=== PATIENT | female | born 1975 | race Caucasian/White ===

== ENCOUNTER 2019-11-10 16:40 | Outpatient (CLI) | payer SELFPAY | END 2019-11-10 23:59 | disposition EMS.NT | LOC: EMS 16:40 | PROVIDERS: ATTEND Surgery | DX: Z04.1 Encounter for examination and observation following transport accident (principal) ==

== ENCOUNTER 2020-09-09 14:24 | Emergency (ER) | payer OTHER ==
[2020-09-09 14:32] VITALS: BP 154/92
[2020-09-09] MEDS ORDERED: KETOROLAC 60 MG/2 ML VIAL IM STA (14:42)
--- NOTE | 2020-09-09 15:31 | XRAY Report ---
PROCEDURE: Hip w/Pelvis 2-3V RT INDICATIONS: pulled hamstring TECHNIQUE: AP pelvis with lateral view(s) of the bilateral hip(s). COMPARISON: None. FINDINGS: Bones: No fractures or dislocations. Pelvic ring appears intact. No suspicious bony lesions. No a vulsion fracture fragments noted. Soft tissues: The visualized bowel gas pattern is normal. No suspicious soft tissue calcifications. IMPRESSION: Right hip and pelvis without acute fracture or dislocation. If there is persistent clinical concern for a radiographically occult fracture, recommend immobilizat ion and repeat imaging in 10 to 14 days. Reviewed by: Abdoul Savage MD on 09/09/2020 3:29 PM PST Approved by: Abdoul Savage MD on 09/09/2020 3:29 PM PST Station ID: [id number]
--- NOTE | 2020-09-09 15:40 | ED Physician Documentation ---
PD HPI LOWER EXT INJURY - Stated complaint Stated Complaint: RT LEG PX - Chief complaint Chief Complaint: Trauma Ext - History obtained from History obtained from: Patient - History of Present Illness PD HPI LOW EXT INJURY LOCATION: Right, Thigh Type of injury: Twist Where injury occurred: Work Timing - onset: Today Timing - duration: Minutes Timing - details: Abrupt onset, Still present Improved by: Rest, Immobilization Worsened by: Moving, Palpating Associated symptoms: No: Weakness, Numbness Contributing factors: No: Anticoagulated Similar symptoms before: Has not had sx before Recently seen: Not recently seen - Additional information Additional information: 45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 Review of Systems Constitutional: reports: Fatigue. denies: Fever, Myalgias Throat: denies: Sore throat Cardiac: denies: Chest pain / pressure Respiratory: denies: Dyspnea, Cough GI: denies: Vomiting PD PAST MEDICAL HISTORY - Past Medical History Cardiovascular: Hypertension Respiratory: None Neuro: None Endocrine/Autoimmune: None GI: None FURNITURE RESTORER: None : None HEENT: None Psych: None Musculoskeletal: None Derm: None - Past Surgical History Past Surgical History: No - Present Medications Home Medications: Ambulatory Orders Medication Instructions Recorded Confirmed Lisinopril [Prinivil] 10 mg PO DAILY 09/09/20 09/09/20 traMADol [Ultram] 50 - 100 mg PO Q6H PRN #20 tablet 09/09/20 - Allergies Allergies/Adverse Reactions: Allergies Allergy/AdvReac Type Severity Reaction Status Date / Time No Known Drug Allergies Allergy Verified 09/09/20 14:28 - Social History Does the pt smoke?: No Smoking Status: Never smoker Does the pt drink ETOH?: Yes Does the pt have substance abuse?: No - Immunizations Immunizations are current?: Yes PD ED PE NORMAL - Vitals Vital signs reviewed: Yes (tachy and hypertensive ) - General General: Alert and oriented X 3, Well developed/nourished, Other (appears to be in pain acutely. 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, No motor deficit, No sensory deficit, Normal speech Eye Opening: Spontaneous Motor: Obeys Commands Verbal: Oriented GCS Score: 15 - Psych Psych: Normal mood, Normal affect Results - Vitals Vitals: Vital Signs - 24 hr 09/09/20 14:29 Temperature 37.1 C Heart Rate 120 H Respiratory 24 Rate Blood Pressure 154/92 H O2 Saturation 97 Oxygen O2 Source Room air - Rads (name of study) r hip Radiology: Prelim report reviewed (Impression: Right hip and pelvis without acute fracture or dislocation.), EMP read indepedently, See rad report PD MEDICAL DECISION MAKING - ED course Complexity details: reviewed results, re-evaluated patient, considered differential, d/w patient ED course: 45-year-old female with a work-related injury with a pole of her hamstrings mu scle is in severe pain. An ice pack is applied she is given 60 mg of Toradol IM and sent home from work. She did ambulate around the emergency department with crutches finishing up paperwork and insisting on continuing to work. Departure - Departure Disposition: 01 Home, Self Care Clinical Impression: Hamstring muscle strain Qualifiers: Encounter type: initial encounter Laterality: right Qualified Code(s): S76.311A - Strain of muscle, fascia and tendon of the posterior muscle group at thigh level, right thigh, initial encounter Condition: Stable Instructions: Hamstring Stretch, ED Strain Muscle Ext Follow-Up: [facility] [Provider Group] Prescriptions: traMADol [Ultram] 50 - 100 mg PO Q6H PRN #20 tablet PRN Reason: Pain Discharge Date/Time: 09/09/20 16:00
== END 2020-09-09 16:00 | disposition home or self-care (01) ==
LOC: ED 14:24
DX: S76.312A Strain of muscle, fascia and tendon of the posterior muscle group at thigh level, left thigh, initial encounter (principal); Y93.F2 Activity, caregiving, lifting; Y92.239 Unspecified place in hospital as the place of occurrence of the external cause; Y99.0 Civilian activity done for income or pay; I10 Essential (primary) hypertension
CPT/HCPCS: 1040M; 73502; 96372; 99283; 99284

== ENCOUNTER 2021-11-13 17:38 | Emergency (ER) | payer OTHER ==
[2021-11-13] MEDS ORDERED: oxyCODONE 5 MG TABLET PO STA (17:40)
--- NOTE | 2021-11-13 17:45 | ED Physician Documentation ---
PD HPI UPPER EXT INJURY - Stated complaint Stated Complaint: L WRIST INJ - History obtained from History obtained from: Patient - History of Present Illness Location: Left Timing - duration: Hours (1) Pain level max: 9 Pain level now: 9 Improved by: Rest, Ice, Immobilization Worsened by: Moving, Palpating Associated symptoms: No: Weakness, Numbness, Tingling Contributing factors: No: Anticoagulated - Additonal information Additional information: 46-year-old female who was on a ladder today when she fell off, landing on the left wrist. She states there was deformity noted. She states that she pulled the wrist back straight. Now complains of increasing pain and swelling. No numbness or tingling. No other injuries. Worse with movement, better with rest. Patient is right-handed. Review of Systems Constitutional: denies: Fever, Chills Skin: denies: Rash Musculoskeletal: denies: Neck pain, Back pain Neurologic: denies: Headache PD PAST MEDICAL HISTORY - Past Medical History Past Medical History: Yes Cardiovascular: Hypertension Respiratory: None Neuro: None Endocrine/Autoimmune: None GI: None COMMUNICATIONS COORDINATOR: None : None HEENT: None Psych: None Musculoskeletal: None Derm: None - Past Surgical History Past Surgical History: No - Present Medications Home Medications: Ambulatory Orders Medication Instructions Recorded Confirmed lisinopriL [Prinivil] 10 mg PO DAILY 09/09/20 09/09/20 traMADol [Ultram] 50 - 100 mg PO Q6H PRN #20 tablet 09/09/20 Ondansetron Odt [Zofran] 4 mg TL Q6H PRN #20 tablet 11/13/21 Oxycodone HCl/Acetaminophen 1 - 2 each PO Q6H PRN #20 tablet 11/13/21 [Percocet 5-325 mg Tablet] - Allergies Allergies/Adverse Reactions: Allergies Allergy/AdvReac Type Severity Reaction Status Date / Time No Known Drug Allergies Allergy Verified 11/13/21 17:46 - Social History Does the pt smoke?: No Smoking Status: Never smoker Does the pt drink ETOH?: Yes Does the pt have substance abuse?: No - Immunizations Immunizations are current?: Yes PD ED PE NORMAL - Vitals Vital signs reviewed: Yes - General General: Alert and oriented X 3, No acute distress, Well developed/nourished - HEENT HEENT: Moist mucous membranes - Respiratory Respiratory: No respiratory distress - Derm Derm: Warm and dry - Extremities Extremities: Other (Tender to palpation over the left wrist. Swelling noted. Neurovascularly intact. No snuffbox tenderness.) - Neuro Neuro: Alert and oriented X 3 - Psych Psych: Normal mood, Normal affect Results - Vitals Vitals: Vital Signs - 24 hr 11/13/21 17:39 Temperature 36.7 C Heart Rate 88 Respiratory 16 Rate Blood Pressure 139/80 H O2 Saturation 100 Oxygen O2 Source Room air - Rads (name of study) L Wrist x-ray Radiology: Final report received, EMP read contemporaneously, See rad report (Distal radius fracture comminuted, extends to the articular surface. Ulnar styloid fracture) L wrist CT Radiology: Final report received, EMP read contemporaneously, See rad report Procedures - Splint (location) L wrist Splint applied by: Physician, Tech Type of splint: Fiberglass, Short arm, Volar cock up Other: Patient tolerated well, No complications, Neurovascular intact, Sling provided PD MEDICAL DECISION MAKING - ED course Complexity details: reviewed results, re-evaluated patient, considered differential, d/w patient ED course: 46-year-old female with a left distal radius fracture and ulnar styloid fracture. The distal radius fracture is comminuted. Extends to the articular surface. CT performed for hand surgery in case surgery is needed. Neurovascular intact. Pain well controlled. I am prescribing a short course of short-acting opioid pain medication for this patient. 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 I have discussed that the opioids are for short term therapy only, and will not be refilled from the ED. patient counseled regarding signs and symptoms for which I believe and urgent re-evaluation would be necessary. Patient with good understanding of and agreement to plan and is comfortable going home at this time This document was made in part using voice recognition software. While efforts are made to proofread this document, sound alike and grammatical errors may occur. FINDINGS: BONES: Comminuted fracture of the distal radius, which extends to articular surface. Mildly displaced fracture of the ulnar styloid. The carpal bones are normally aligned. Cystic lesions are seen in the scaphoid and capitate, which may reflect fibrocystic change or erosions. SOFT TISSUES: Edema about the fracture sites. IMPRESSION: 1.Fractures of the distal radius and ulnar styloid. Departure - Departure Disposition: 01 Home, Self Care Clinical Impression: Distal radius fracture, left Qualifiers: Encounter type: initial encounter Fracture type: closed Fracture morphology: unspecified fracture morphology Qualified Code(s): S52.502A - Unspecified fracture of the lower end of left radius, initial encounter for closed fracture Fracture of ulnar styloid Qualifiers: Encounter type: initial encounter Fracture type: closed Fracture alignment: nondisplaced Laterality: left Qualified Code(s): S52.615A - Nondisplaced fracture of left ulna styloid process, initial encounter for closed fracture Condition: Good Instructions: ED Fx Upper Ext Follow-Up: Susan Kang MD [Primary Care Provider] - [facility] [Provider Group] Prescriptions: Oxycodone HCl/Acetaminophen [Percocet 5-325 mg Tablet] 1 - 2 each PO Q6H PRN #20 tablet PRN Reason: pain Ondansetron Odt [Zofran] 4 mg TL Q6H PRN #20 tablet PRN Reason: Nausea / Vomiting Comments: Please follow-up with orthopedics in [place] for further care. The fractures do extend to the articular surface. The use may require surgery, depending on the opinion of the hand surgeon. Please return if you worsen. Your prescriptions were sent to [facility] in [place]. I am prescribing a short course of narcotic pain medication for you. These are potentially dangerous and addictive medications that should be used carefully. These medications may constipate you. Take an heth-gwi-bvorlct stool softener (docusate) twice daily with plenty of water while taking these medications. If you go 24 hours without a bowel movement, take wkoh-pfg-gpyhzqw miralax, per package instructions. Do not drink or drive while taking these medications. If you received narcotic or sedating medications while in the emergency department, do not drive for 24 hours. Store this medication in a safe, secure place and out of reach of children. It is a violation of federal law to give or sell this medication to another person or to use in a manner other than prescribed. The ED will not refill narcotic prescriptions, including prescriptions lost or stolen. To dispose of unwanted medications: 1. [facility] at [address] [facility] in [place] has a medication drop box. They accept prescription medications (in pill form) Tuesday through Tuesday 9:00 a.m. to 5:00 p.m. 2. The [facility] accepts prescription medications (in pill form only) for disposal year round. Call for more inf ormation. 3. Contact the [facility] for the next [facility] sponsored prescription drug collection event. , [phone], or [phone]; FINDINGS: BONES: Comminuted fracture of the distal radius, which extends to articular surface. Mildly displaced fracture of the ulnar styloid. The carpal bones are normally aligned. Cystic lesions are seen in the scaphoid and capitate, which may reflect fibrocystic change or erosions. SOFT TISSUES: Edema about the fracture sites. IMPRESSION: 1.Fractures of the distal radius and ulnar styloid. Discharge Date/Time: 11/13/21 19:30
[2021-11-13 17:46] VITALS: BP 139/80
--- NOTE | 2021-11-13 18:17 | XRAY Report ---
PROCEDURE: Wrist 4 View LT INDICATIONS: L wrist pain TECHNIQUE: 4 views of the wrist were acquired. COMPARISON: None. FINDINGS: BONES: Comminuted fracture of the distal radius, which extends to articular surface. Mildly displaced fracture of the ulnar styloid. The carpal bones are normally aligned. SOFT TISSUES: Edema about the fracture sites. IMPRESSION: 1.Fractures of the distal radius and ulnar styloid. Reviewed by: Jaime Roca MD on 11/13/2021 6:16 PM [facility] Approved by: Jaime Roca MD on 11/13/2021 6:16 PM [facility] Station ID: [id number]
--- NOTE | 2021-11-13 18:53 | CT Report ---
PROCEDURE: UPPER EXTREMITY WO - LT INDICATIONS: distal radius fracture TECHNIQUE: Noncontrast 3 mm axial sections acquired of the left wrist, with coronal and sagittal reformats. COMPARISON: Reference is made to the left wrist radiographs of same day. FINDINGS: Image quality: Excellent. FINDINGS: BONES: Comminuted fracture of the distal radius, which extends to articular surface. Mildly displaced fracture of the ulnar styloid. The carpal bones are normally aligned. Cystic lesions are seen in the scaphoid and capitate, which ma y reflect fibrocystic change or erosions. SOFT TISSUES: Edema about the fracture sites. IMPRESSION: 1.Fractures of the distal radius and ulnar styloid. Reviewed by: Jaime Roca MD on 11/13/2021 6:51 PM PST Approved by: Jaime Roca MD on 11/13/2021 6:51 PM PST Station ID: [id number]
== END 2021-11-13 19:30 | disposition home or self-care (01) ==
LOC: ED 17:38
DX: S52.502A Unspecified fracture of the lower end of left radius, initial encounter for closed fracture (principal); S52.612A Displaced fracture of left ulna styloid process, initial encounter for closed fracture; W11.XXXA Fall on and from ladder, initial encounter; I10 Essential (primary) hypertension
CPT/HCPCS: 29125; 73110; 73200; 99282; 99284; A9270

== ENCOUNTER 2021-11-18 09:30 | Day surgery (SDC) | payer OTHER ==
[~2021-11-18 09:30] MED LIST: ACETAMINOPHEN 325 MG TABLET PO ONE
[2021-11-18] MEDS ORDERED: CEFAZOLIN SODIUM IN 0.9 % NACL 2 GM/50 ML BAG IV ONE (09:31)
[2021-11-18] MEDS ORDERED: CELECOXIB 100 MG CAPSULE PO ONE (09:31)
[2021-11-18] MEDS ORDERED: LACTATED RINGERS 1,000 ML IV ONE (10:10)
--- NOTE | 2021-11-18 10:59 | ANESTHESIA ---
Pre-Anesthesia VS, & Labs - Diagnosis Left distal radius fracture - Procedure ORIF left distal radius fracture Vital Signs: Temp Pulse Resp BP Pulse Ox 36.3 C L 92 20 144/88 H 98 11/18/21 09:37 11/18/21 09:37 11/18/21 09:37 11/18/21 09:37 11/18/21 09:37 Height: 5 ft 3 in Weight (kg): 106.59 kg Body Mass Index: 41.6 BMI Classification: Morbidly Obese - NPO >8 hours - Is Patient ?: No Home Medications and Allergies Home Medications: Ambulatory Orders Ibuprofen 600 mg PO PRN PRN 11/17/21 lisinopriL [Prinivil] 10 mg PO DAILY 09/09/20 Ibuprofen 600 mg PO PRN PRN 11/17/21 Allergies/Adverse Reactions: Allergies Allergy/AdvReac Type Severity Reaction Status Date / Time No Known Drug Allergies Allergy Verified 11/18/21 09:58 Anes History & Medical History - Anesthetic History Family history of Anesthesia Complications: Denies Family history of Malignant Hyperthermia: Denies - Medical History Cardiovascular: reports: Hypertension Pulmonary: reports: None Gastrointestinal: reports: None Urinary: reports: None Neuro: reports: None Musculoskeletal: reports: None Endocrine/Autoimmune: reports: None Blood Disorders: reports: None Skin: reports: None Smoking Status: Never smoker Psychosocial: reports: No issues indicated History of Cancer?: No Exam General: Alert, Oriented x3, Cooperative, No acute distress Dental: WNL Mouth Opening: Greater than 4 Fingerbreadths Neck Mobility: Normal Mallampati classification: I Thyromental Distance: 4-6 cm Mental/Cognitive Status: Alert/Oriented X3, Normal for patient Plan Anesthesia Type: Supraclavicular Block Consent for Procedure(s) Verified and Reviewed: Yes Code Status: Attempt Resuscitation ASA classification: 2-Mild systemic disease Is this case an emergency?: No
[2021-11-18] MEDS ORDERED: KETOROLAC 15 MG/ML VIAL IVP STA (11:11)
[2021-11-18] MEDS ORDERED: HYDROcod/ACETAM 5/325 MG TABLET PO PRN (11:11)
[2021-11-18] MEDS ORDERED: fentaNYL 100 MCG/2 ML VIAL ONE ×2 (11:12→14:36)
[2021-11-18] MEDS ORDERED: LIDOCAINE-PF 2% 10 ML AMP SUBQ ONE (11:12)
[2021-11-18] MEDS ORDERED: MIDAZOLAM 2 MG/2 ML VIAL ONE (11:12)
[2021-11-18] MEDS ORDERED: ROPIVACAINE 0.5% PF 30 ML VIAL ONE (11:12)
[2021-11-18] MEDS ORDERED: DEXAMETHASONE 10 MG/ML VIAL ONE (11:12)
[2021-11-18] MEDS ORDERED: PROPOFOL 500 MG/50 ML 500 MG/50 ML VIAL ONE ×4 (11:35→14:10)
[2021-11-18] MEDS ORDERED: KETAMINE 500 MG/10 ML VIAL ONE (12:20)
--- NOTE | 2021-11-18 14:43 | OPERATIVE REPORT ---
Operative Report - General Procedure Date: 11/18/21 Planned Procedure: Open reduction internal fixation left distal radius Pre-Op Diagnosis: Closed, displaced intra-articular fracture left distal radius and ulnar sty Procedure Performed: Open reduction internal fixation left distal radius with Arthrex volar distal locking Titanium wrist plate, standard width with 3 holes in the shaft Post Op Diagnosis: Same as preoperative diagnosis - Procedure Note Primary Surgeon: Mook Carlos Secondary Surgeon: Pablo HUTTON Anesthesia Provider: Rosa Mahoney Anesthesia Technique: Regional block Estimated Blood Loss (mL): 25 Indications: And 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 She fell from a ladder and sustained a displaced articular fracture of the left distal radius. She had pain, limited wrist motion, swelling about the left wrist. Her neurovascular status was intact. Her x-rays showed a comminuted displaced fracture of the left distal radius involving the radial lunate facet and sigmoid facet of the left distal radius. There was abnormal angulationOn lateral view with abnormal volar tilt, shortening at fracture site and some displacement of the intra-articular fractures. I discussed treatment options and the patient was agreement to proceeding with surgery. Findings: Displaced, comminuted intra-articular fractures of radial lunate and sigmoid facets of the distal radius. There also was a ulnar styloid fracture fragment. Complications: None - Other Other Information/Narrative: After satisfactory regional anesthesia to left upper extremity was obtained, the left upper extremity was prepped and draped in a sterile manner in the usual fashion. A tourniquet was applied over the proximal left arm over cast padding and excluded from the operative field using a U drape. The left arm was placed on an arm extension table. The C-arm image intensifier was available and was used intermittently throughout the case, covered with a sterile drape. A timeout procedure was performed by the entire operating room team and all were in agreement. Fingertrap traction was applied to all 5 fingers with a traction bow. A sterile bump was placed beneath the wrist. The pneumatic tourniquet was elevated 200 mmHg. The forearm was supinated and a volar radial longitudinal incision was made over the flexor carpi radialis. The tendon sheath of the flexor carpi radialis was opened with scissors from proximal to distal. The floor of the flexor carpi radialis sheath was opened from proximal to distal. The flexor carpi radialis tendon was retracted in a radial direction to protect the radial artery. The flexor pollicis longus tendon and muscle belly was identified and was retracted in an ulnar direction to protect the flexor tendons of the fingers and the median nerve. The pronator quadratus was incised longitudinally along the radial border, leaving a cuff of tissue for repair. The fracture was exposed by subperiosteal dissection. A lobster claw was placed proximally and a wheat [place] was inserted with blunt tips to retract. A standard plate was applied and had to be adjusted. The oblong hole within the volar plate was utilized. A K wire was inserted in the distalmost end of the peak locking guide. A true lateral was obtained to verify distal placement and an AP view to visualize the central alignment of the plate on the distal radius. Traction was utilized to reduce the fracture using the fingertrap traction. The plate was secured with the oblong screw hole and 2 K wires distally. The locking guide was then utilized to insert locking screws in the distal row of the plate and checked with the C-arm image intensifier for depth and avoidance of intra- articular placement. One of the radial styloid screws diverged too much to allow utilization of that hole. The shaft screws were 3.5 mm, 1 locking in the most proximal hole and nonlocking in the 2 other holes. The alignment of the fracture both with regard to length, articular alignment and angulation was near normal anatomically. 4 locking screws were inserted in the distal row. The tourniquet was deflated after 90 minutes. The wound was irrigated. Final imaging was obtained with true AP, lateral, supination and pronation views as well as a axial view or tangential view. Screw placement and plate position appeared to be very good. The wrist had good range of motion and she had a normal shuck test to the distal radial ulnar joint. The pronators was repaired with 2-0 Vicryl. Vancomycin had been inserted over the plate and soft tissue was covered over the plate as well. The subcutaneous tissue was closed with 2 0 strata fix suture. The subcutaneous tissue was closed with 3 0 strata fix subcuticular. Dermabond was applied to the incision. A short arm volar fiberglass splint was applied. She received 2 g of Ancef intravenously. She tolerated procedure well.A physician community assistant was utilized and was felt to be medically necessary to help with reduction, exposure and retraction of vital structures, splint application and wound closure.
[2021-11-18] MEDS ORDERED: VANCOMYCIN 1 GM VIAL MC ONE (14:44)
[2021-11-18] MEDS ORDERED: LACTATED RINGERS 400 ML IV ONE ×2 (14:58→15:01)
[2021-11-18] MEDS ORDERED: HYDROmorphone 0.5 MG/0.5 ML SYRINGE IVP PRN (15:15)
[2021-11-18] MEDS ORDERED: fentaNYL 100 MCG/2 ML VIAL IVP PRN (15:15)
[2021-11-18] MEDS ORDERED: ONDANSETRON 4 MG/2 ML VIAL IVP PRN (15:15)
[2021-11-18] MEDS ORDERED: NALOXONE 0.4 MG/ML VIAL IVP PRN (15:15)
[2021-11-18] MEDS ORDERED: MORPHINE 2 MG/ML CARPUJECT IVP PRN (15:15)
[2021-11-18] MEDS ORDERED: ATROPINE ABBOJECT 1 MG/10 ML SYRINGE IVP PRN (15:15)
--- NOTE | 2021-11-18 15:15 | ANESTHESIA POST OP EVALUATION ---
Anesthesia Post Eval - Post Anesthesia Eval Vitals: Last Vital Signs Temp 36.3 C L 11/18/21 15:10 Pulse 88 11/18/21 15:10 Resp 16 11/18/21 15:10 BP 142/88 H 11/18/21 15:10 Pulse Ox 95 11/18/21 15:10 CV Function Including HR & BP: Stable Pain Control: Satisfactory Nausea & Vomiting: Negative Mental Status: Baseline Respiratory Status: Airway Patent Hydration Status: Satisfactory Anesthesia Complications: None
[2021-11-18 15:50] VITALS: BP 141/88
[2021-11-18] MEDS ORDERED: LACTATED RINGERS 1,000 ML IV SCH (16:00)
--- NOTE | 2021-11-20 09:42 | XRAY Report ---
PROCEDURE: OR C-Arm Procedure INDICATIONS: ORIF WRIST TECHNIQUE: For intraoperative fluoroscopic images of left wrist COMPARISON: Wrist radiograph dated 11/13/2021. FINDINGS: Intraoperative fluoroscopic images shows internal fixation of patient's known distal radial fracture with anatomic misalignment. Total fluoroscopy time is 30 seconds. IMPRESSION: Fluoroscopy guidance was provided intraoperatively for ORIF of left distal radius. Reviewed by: Ervin Espinosa MD on 11/20/2021 9:40 AM PST Approved by: Ervin Espinosa MD on 11/20/2021 9:40 AM [facility] Station ID: [id number]
== END 2021-11-18 09:31 | disposition home or self-care (01) ==
LOC: SDS 09:30
PROVIDERS: ATTEND Orthopaedic Surgery
DX: S52.572A Other intraarticular fracture of lower end of left radius, initial encounter for closed fracture (principal); S52.612A Displaced fracture of left ulna styloid process, initial encounter for closed fracture; I10 Essential (primary) hypertension; E66.01 Morbid (severe) obesity due to excess calories; Z68.41 Body mass index [BMI] 40.0-44.9, adult
CPT/HCPCS: 25608; A9270; C1713; J0690; J3370; J7120

== ENCOUNTER 2021-12-29 08:23 | Outpatient (CLI) | payer OTHER ==
--- NOTE | 2021-12-29 13:21 | XRAY Report ---
PROCEDURE: Wrist 3 View LT INDICATIONS: WRIST ORIF TECHNIQUE: 3 views of the wrist were acquired. COMPARISON: Wrist radiographs and CT dated 11/13/2021 FINDINGS: Bones: Postsurgical changes are seen from fixation of previously seen comminuted distal radial intra- articular fracture with a volar plate and screw construct. The alignment appears anatomic. Additional minimally displaced comminuted ulnar styloid fracture does not appear significantly changed. Soft tissues: No suspicious soft tissue calcifications. Soft tissue edema is seen surrounding the w rist. IMPRESSION: Postsurgical changes from internal fixation of the previously seen comminuted distal radial fracture with improved alignment. Reviewed by: Reece Jalloh MD on 12/29/2021 1:20 PM PDT Approved by: Reece Jalloh MD on 12/29/2021 1:20 PM PDT Station ID: [id number]
== END 2021-12-29 23:59 | disposition home or self-care (01) ==
LOC: DI.WOS 08:23
PROVIDERS: ATTEND Orthopaedic Surgery
DX: S52.572A Other intraarticular fracture of lower end of left radius, initial encounter for closed fracture (principal)

== ENCOUNTER 2022-02-18 06:00 | Outpatient (CLI) | payer OTHER ==
--- NOTE | 2022-02-18 18:21 | XRAY Report ---
PROCEDURE: Wrist 3 View LT INDICATIONS: WRIST ORIF TECHNIQUE: 3 views of the wrist were acquired. COMPARISON: 12/29/2021, 11/13/2019 to. FINDINGS: Bones: Post-ORIF changes are again seen in distal radius. Interval further healing at distal radial f racture site is seen. Fractured ulnar styloid is again noted and unchanged. No gross hardware looseni ng or failure. No new fracture or dislocation. No suspicious bony lesions. Scaphoid view: Scaphoid is grossly intact. Soft tissues: No suspicious soft tissue calcifications. IMPRESSION: Interval further healing at distal radial shaft fracture site. Stable appearing ulnar styloid fractur e. No new fracture or dislocation. No gross hardware complication. Reviewed by: Ervin Espinosa MD on 02/18/2022 6:20 PM PDT Approved by: Ervin Espinosa MD on 02/18/2022 6:20 PM PDT Station ID: [id number]
== END 2022-02-18 23:59 | disposition home or self-care (01) ==
LOC: DI.WOS 06:00
PROVIDERS: ATTEND Orthopaedic Surgery
DX: S52.302D Unspecified fracture of shaft of left radius, subsequent encounter for closed fracture with routine healing (principal)